=== PATIENT | female | born 1975 | race Two or more races ===

== ENCOUNTER → 2018-01-17 | Outpatient (CLI) | payer OTHER ==
[~2018-01-17] MED LIST: DICY10CA PO; ENALAPRIL MALEAT5 MG PO; INDAPAMIDE1.25 MG; LOSARTAN-HCTZ1 EAC1
== END | disposition home or self-care (01) ==
LOC: PPHC 11:15
DX: H66.91 Otitis media, unspecified, right ear (principal)

== ENCOUNTER → 2018-02-02 | Outpatient (CLI) | payer OTHER | END | disposition home or self-care (01) | LOC: MAMO-SONO 14:45 | DX: N64.89 Other specified disorders of breast (principal); Z12.31 Encounter for screening mammogram for malignant neoplasm of breast ==

== ENCOUNTER → 2019-01-07 | Outpatient (CLI) | payer OTHER | END | disposition home or self-care (01) | LOC: RAD 501 11:40 | DX: M54.2 Cervicalgia (principal) ==

== ENCOUNTER 2019-01-09 09:37 | Outpatient (CLI) | payer OTHER | END 2019-01-09 09:59 | disposition home or self-care (01) | LOC: LAB 09:37 | DX: E78.4 Other hyperlipidemia (principal); I10 Essential (primary) hypertension ==

== ENCOUNTER 2019-01-29 11:15 | Outpatient (CLI) | payer OTHER | END 2019-01-29 11:24 | disposition home or self-care (01) | LOC: RAD 501 11:15 | DX: R10.12 Left upper quadrant pain (principal); R07.89 Other chest pain ==

== ENCOUNTER → 2019-02-06 | Outpatient (CLI) | payer OTHER | END | disposition home or self-care (01) | LOC: SONOGRAMA 09:06 → MAMO-SONO 09:15 | DX: R59.1 Generalized enlarged lymph nodes (principal) ==

== ENCOUNTER → 2019-02-19 | Outpatient (CLI) | payer OTHER ==
[~2019-02-19] VITALS: Ht 162.6 cm; Wt 63.5 kg
== END | disposition home or self-care (01) ==
LOC: OFIC 805 11:18
DX: F41.8 Other specified anxiety disorders (principal); R22.1 Localized swelling, mass and lump, neck; R06.02 Shortness of breath

== ENCOUNTER 2019-03-02 15:31 | Outpatient (CLI) | payer OTHER | END 2019-03-02 15:39 | disposition home or self-care (01) | LOC: LAB 15:31 | DX: Z51.81 Encounter for therapeutic drug level monitoring (principal); R22.1 Localized swelling, mass and lump, neck; N17.8 Other acute kidney failure; S37.001A Unspecified injury of right kidney, initial encounter ==

== ENCOUNTER 2019-03-11 08:01 | Outpatient (CLI) | payer OTHER | END 2019-03-11 10:53 | disposition home or self-care (01) | LOC: TOM 08:01 | DX: R22.1 Localized swelling, mass and lump, neck (principal) ==

== ENCOUNTER 2019-03-29 14:27 | Outpatient (CLI) | payer OTHER | END 2019-03-29 14:58 | disposition home or self-care (01) | LOC: LAB 14:27 | DX: J11.1 Influenza due to unidentified influenza virus with other respiratory manifestations (principal); A49.3 Mycoplasma infection, unspecified site; R50.9 Fever, unspecified ==

== ENCOUNTER → 2019-07-02 15:27 | Outpatient (CLI) | payer OTHER | END | disposition home or self-care (01) | LOC: LAB 15:27 | DX: N20.0 Calculus of kidney (principal) ==

== ENCOUNTER 2019-07-08 11:23 | Outpatient (CLI) | payer OTHER | END 2019-07-08 11:27 | disposition home or self-care (01) | LOC: MRI 11:23 | DX: R22.1 Localized swelling, mass and lump, neck (principal) | CPT/HCPCS: 70542 ==

== ENCOUNTER → 2020-05-26 08:56 | Outpatient (CLI) | payer OTHER | END | disposition home or self-care (01) | LOC: LAB 08:56 | PROVIDERS: ATTEND Physical Medicine & Rehabilitation | DX: Z20.828 Contact with and (suspected) exposure to other viral communicable diseases (principal); Z11.59 Encounter for screening for other viral diseases ==

== ENCOUNTER 2020-06-16 10:55 | Outpatient (CLI) | payer OTHER ==
[~2020-06-16] VITALS: Ht 162.6 cm; Wt 65.8 kg
== END 2020-06-16 17:14 | disposition home or self-care (01) ==
LOC: OFIC 805 10:55
PROVIDERS: ATTEND Otolaryngology Otology & Neurotology
DX: H69.92 Unspecified Eustachian tube disorder, left ear (principal); H92.02 Otalgia, left ear; J34.89 Other specified disorders of nose and nasal sinuses; J31.0 Chronic rhinitis

== ENCOUNTER 2020-07-18 06:40 | Outpatient (CLI) | payer OTHER | END 2020-07-18 06:46 | disposition home or self-care (01) | LOC: LAB 06:40 | PROVIDERS: ATTEND Internal Medicine Sports Medicine | DX: D64.89 Other specified anemias (principal); E11.9 Type 2 diabetes mellitus without complications; E78.2 Mixed hyperlipidemia; I10 Essential (primary) hypertension; E03.8 Other specified hypothyroidism ==

== ENCOUNTER 2020-07-25 08:30 | Outpatient (CLI) | payer OTHER | END 2020-07-25 15:00 | disposition home or self-care (01) | LOC: PPH VACUNA 08:30 | DX: Z23 Encounter for immunization (principal) ==

== ENCOUNTER 2020-10-24 14:13 | Outpatient (CLI) | payer OTHER | END 2020-10-24 18:00 | disposition home or self-care (01) | LOC: PPH VACUNA 14:13 | DX: Z23 Encounter for immunization (principal) ==

== ENCOUNTER 2021-02-13 14:10 | Outpatient (CLI) | payer OTHER | END 2021-02-13 14:18 | disposition home or self-care (01) | LOC: MRI 14:10 | PROVIDERS: ATTEND Physical Medicine & Rehabilitation | DX: M25.562 Pain in left knee (principal); R22.1 Localized swelling, mass and lump, neck | CPT/HCPCS: 73721 ==

== ENCOUNTER 2021-08-03 08:00 | Outpatient (CLI) | payer OTHER | END 2021-08-03 08:30 | disposition home or self-care (01) | LOC: PPH VACUNA 08:00 | PROVIDERS: ATTEND Emergency Medicine Pediatric Emergency Medicine | DX: Z23 Encounter for immunization (principal) ==

== ENCOUNTER 2021-08-24 08:00 | Outpatient (CLI) | payer OTHER | END 2021-08-24 08:30 | disposition home or self-care (01) | LOC: PPH VACUNA 08:00 | PROVIDERS: ATTEND Emergency Medicine Pediatric Emergency Medicine | DX: Z23 Encounter for immunization (principal) ==

== ENCOUNTER 2022-02-05 08:00 | Outpatient (CLI) | payer OTHER | END 2022-02-05 08:30 | disposition home or self-care (01) | LOC: PPH VACUNA 08:00 | PROVIDERS: ATTEND Emergency Medicine Pediatric Emergency Medicine | DX: Z23 Encounter for immunization (principal) | CPT/HCPCS: 90686; G0008 ==

== ENCOUNTER 2022-03-11 14:15 | Outpatient (CLI) | payer OTHER | END 2022-03-11 14:27 | disposition home or self-care (01) | LOC: MAMO-SONO 14:15 | DX: N64.4 Mastodynia (principal); N92.6 Irregular menstruation, unspecified ==

== ENCOUNTER 2022-07-31 08:00 | Outpatient (CLI) | payer OTHER | END 2022-07-31 08:05 | disposition home or self-care (01) | LOC: PPH VACUNA 08:00 | PROVIDERS: ATTEND Emergency Medicine Pediatric Emergency Medicine | DX: Z23 Encounter for immunization (principal) ==

== ENCOUNTER 2023-06-09 12:09 | Emergency (ER) | payer OTHER ==
[~2023-06-09] VITALS: Ht 165.1 cm; Wt 68.0 kg
== END 2023-06-09 17:18 | disposition home or self-care (01) ==
LOC: ER 12:09
DX: M62.838 Other muscle spasm (principal); I10 Essential (primary) hypertension

== ENCOUNTER → 2023-07-10 | Outpatient (CLI) | payer OTHER | END | disposition home or self-care (01) | LOC: PPH VACUNA | PROVIDERS: ATTEND Emergency Medicine Pediatric Emergency Medicine | DX: Z23 Encounter for immunization (principal) ==

== ENCOUNTER → 2025-06-02 10:32 | Outpatient (CLI) | payer OTHER ==
[2025-06-02 08:24] LABS: BASO % 0.7 % (0.1-1.2); EOS # 0.21 (0.04-0.54); EOS % 2.9 % (0.7-7.0); LYMPH # 2.82 (1.18-3.74); LYMPH % 38.6 % (19.3-53.1); MEAN PLATELET VOLUME 9.50 fl (9.4-12.4); MONO # 0.52 (0.24-0.82); MONO % 7.1 % (4.7-12.5); NEUT # 3.68 (1.56-6.13); NEUT % 50.4 % (34.0-71.1); RED CELL DISTRIBUTION WIDTH 12.1 % (11.6-14.4)
[2025-06-02 08:29] LABS: URINE APPEARANCE Clear; URINE BILIRRUBIN Negative (NEGATIVE); URINE BLOOD Negative; URINE COLOR Yellow; URINE GLUCOSE Negative (NEGATIVE); URINE KETONE Negative (NEGATIVE); URINE LEUKOCYTE Trace; URINE NITRATE Negative; URINE PROTEIN 30 (NEGATIVE); URINE UROBILINOGEN 1.0 E.U./dl
[2025-06-02 08:33] LABS: URINE BACTERIA 573.4 uL (0.0-1933); URINE EPITHELIAL CELLS 22.1 uL (0.0-38.8); URINE RBC 12.4 uL (0.0-20.8); URINE WBC 11.3 uL (0.0-23.2)
[2025-06-02 08:40] LABS: URINE CAST 0.14 uL (0.0-1.40)
[2025-06-02 09:07] LABS: ob NEGATIVE (NEGATIVE)
[2025-06-02 09:56] LABS: ALT/SGPT 128.0 U/L (12-78); AST/SGOT 90.0 U/L (15-37); BILIRUBIN TOTAL 0.85 mg/dL (0.3-1.2); BUN CREA RATIO 18.0 (7.0-25.0); CHOL HDL RATIO 4.0 (0-5.0); CREATININE SERUM 0.62 mg/dL (0.55-1.02); FREE TRIODOTIRONINE 2.76 pg/ml (2.18-3.98); GFR 101.89; GLOBULINA 3.7 G/DL (2.4-3.5); GLUCOSE FASTING 92.0 mg/dL (65-100); HDL 59.0 mg/dl (40-60); LDL 144.0 mg/dl (0-130); OSMOLALITY SERUM 284.0 MOSM/KG (275-295); T4 FREE 0.94 NG/ML (0.76-1.46); TSH 1.37 uIU/mL (0.358-3.74); VLDL 31.0 (0-39)
[2025-06-03 09:08] LABS: ANTI THYROID PEROXIDASE 10.0 IU/mL (0-34); DHEA-SULFATE 129.0 ug/dL (41.2-243.7); ESTRADIOL SERUM 15.2 pg/mL (.); LEUTEINIZING HORMONE 31.6 mIU/mL (.); PROGESTERONA 0.2 ng/mL (.)
[2025-06-06 19:07] LABS: T T 28.0 ng/dL (4-50); test free 0.6 pg/mL (0.0-4.2)
== END | disposition home or self-care (01) ==
LOC: LAB 07:35
PROVIDERS: ATTEND Obstetrics & Gynecology
DX: R73.01 Impaired fasting glucose (principal); E78.00 Pure hypercholesterolemia, unspecified; D50.0 Iron deficiency anemia secondary to blood loss (chronic); E03.8 Other specified hypothyroidism; E55.9 Vitamin D deficiency, unspecified; M81.0 Age-related osteoporosis without current pathological fracture; R30.0 Dysuria; Z12.11 Encounter for screening for malignant neoplasm of colon; N91.1 Secondary amenorrhea; E16.1 Other hypoglycemia; E27.8 Other specified disorders of adrenal gland; R79.89 Other specified abnormal findings of blood chemistry

== ENCOUNTER → 2025-06-02 | Outpatient (CLI) | payer OTHER | END | disposition home or self-care (01) | LOC: MAMO-SONO 08:32 | PROVIDERS: ATTEND Obstetrics & Gynecology | DX: N60.22 Fibroadenosis of left breast (principal); N60.21 Fibroadenosis of right breast; Z12.31 Encounter for screening mammogram for malignant neoplasm of breast; N91.1 Secondary amenorrhea ==

== ENCOUNTER → 2025-07-12 10:59 | Outpatient (CLI) | payer OTHER | END | disposition home or self-care (01) | LOC: NUCLEAR 10:59 | DX: M81.0 Age-related osteoporosis without current pathological fracture (principal) ==

== ENCOUNTER 2025-07-13 09:58 | Outpatient (CLI) | payer OTHER | END 2025-07-13 10:02 | disposition home or self-care (01) | LOC: SONOGRAMA 09:58 | PROVIDERS: ATTEND Obstetrics & Gynecology | DX: R79.89 Other specified abnormal findings of blood chemistry (principal); K76.0 Fatty (change of) liver, not elsewhere classified ==

== ENCOUNTER 2025-08-19 07:51 | Outpatient (CLI) | payer OTHER | END 2025-08-19 07:52 | disposition home or self-care (01) | LOC: NUCLEAR 07:51 | PROVIDERS: ATTEND Internal Medicine | DX: I20.9 Angina pectoris, unspecified (principal) ==